=== PATIENT | male | born 1975 ===

== ENCOUNTER 2024-12-25 11:36 | Emergency (ER) | payer BC, SELFPAY ==
[2024-12-25] VITALS (8 sets, daily range): BP systolic 126–145; BP diastolic 89–102; PULSE 78–89; RESP 16–18; TEMP 36.5; O2SAT 97–99; BMI 24.7
--- NOTE | 2024-12-25 17:48 | CRLHL7_ITS ---
For Patients: As a result of the Century Cures Act, medical imaging exams and procedure reports are released immediately into your electronic medical record. You may view this report before your referring provider. If you have questions, please contact your health care provider. Indication: Headaches, weight loss. Technique: CT of the head without contrast. Coronal and sagittal reformats. Bone and soft tissue windows. Comparison: No prior studies available for comparison at this institution. Findings: No acute intracranial hemorrhage or extra-axial collection. No evidence of acute cortical infarction. No mass effect or midline shift. Normal cerebral volume. The ventricles are normal in size, shape and contour. There is normal silva and white matter differentiation. The orbital contents are normal. No calvarial fractures. Incidental bone island in the left frontal bone scalp and other imaged soft tissue structures are normal. Mastoid air cells are clear. Paranasal sinuses are well aerated. Leftward deviation of the nasal septum. Impression: No acute intracranial abnormality. Please note that all CT scans at this facility use dose modulation, iterative reconstruction, and/or weight-based dosing when appropriate to reduce radiation dose to as low as reasonably achievable. Dictated by Chandu Baldwin MD @ 12/25/2024 6:10:10 PM (Electronically Signed)
--- NOTE | 2024-12-25 17:49 | CRLHL7_ITS ---
For Patients: As a result of the Century Cures Act, medical imaging exams and procedure reports are released immediately into your electronic medical record. You may view this report before your referring provider. If you have questions, please contact your health care provider. INDICATION: Chest pain. TECHNIQUE: Chest 2 views. COMPARISON: None. FINDINGS: Cardiovascular and mediastinum: Heart size and vasculature are normal in caliber and appearance. Lungs and pleural spaces: No focal consolidation, pleural effusion, or pneumothorax. Bones and soft tissues: Unremarkable for age. IMPRESSION: No evidence of an acute pulmonary process. Dictated by Juan West MD @ 12/25/2024 6:24:41 PM (Electronically Signed)
--- NOTE | 2024-12-25 17:59 | ED.GENADULT ---
HPI - General Adult General Date Seen: 12/25/24 Chief complaint: Unspecified Complaint, Adult Stated complaint: anxiety, headache, body aches Time Seen by Provider: 12/25/24 17:34 Source: patient Mode of arrival: ambulatory Limitations: no limitations History of Present Illness HPI narrative: Patient is a 49-year-old male presenting for multiple complaints. His main complaint is he is concerned he is not sleeping and he believes that is causing all of his other issues. He has been having a headache now for few weeks and thinks is because he can not sleep. Has also been staying he has been losing weight and has a dry mouth. Not aware of any sick contacts. He states he has tried some [id number] sleep medication but the only thing work was when his doctor previously prescribed him Ambien. Also states his entire body hurts. States he started having chest pain a few days ago. Does not feel short of breath. Feels very fatigued but denies any focal weakness or numbness. States he feels like he has some vision changes when he closes eyes and opens them again. States all the symptoms are making him very anxious but denies any thoughts of self-harm. His is concerned because he is in acting normal. The difficulty in sleep has been going on since the beginning of November. Related Data Home Medications ?Medication ?Instructions ?Recorded ?Confirmed Remelton QHS 12/25/24 gabapentin 300 mg capsule 300 mg PO .PRN 12/25/24 12/25/24 Allergies Allergy/AdvReac Type Severity Reaction Status Date / Time No Known Drug Allergies Allergy Verified 12/25/24 12:10 Review of Systems Status of ROS: Reports: 10 or more systems reviewed and unremarkable except as noted in History and below [facility] Social History Smoking Status: Never smoker Second hand tobacco smoke exposure: No How often do you have a drink containing alcohol: never AUDIT-C Alcohol total score: 0 Non-prescribed substance use: denies use Exam Narrative: Exam Narrative: Const: Well-nourished, Well-developed, in mild distress Eyes: PERRL, no conjunctival injection, and symmetrical lids HENT: Atraumatic external nose and ears. Moist mucous membranes. Neck: Symmetric, trachea midline, No thyromegaly. CVS: RRR, No murmurs or gallops. Peripheral pulses 2+ and equal in all extremities RESP: Unlabored respiratory effort. Clear to auscultation bilaterally. GI: Nontender/Nondistended, No rebound or guarding. MSK:Extremities w/o deformity, Normal Active ROM Skin: Warm, Dry. No rashes or lesions. Neuro: Normal Muscle tone, No focal neurological deficits. Psych: Awake, Alert, & Oriented x3. Appropriate mood and affect. Const: Vital Signs, click to edit/add: Vital Signs - 24 hr 12/25/24 11:58 12/25/24 15:26 12/25/24 18:45 Temperature 97.7 F 97.7 F Pulse Rate [Pulse Oximeter] 79 89 Respiratory Rate 16 18 Respiratory Rate [ Generalized] Blood Pressure [Ri ght Upper Arm] 126/89 137/102 H Pulse Oximetry 97 98 Oxygen Delivery Me thod Room Air Room Air 12/25/24 18:49 12/25/24 18:52 Temperature 97.7 F Pulse Rate [Pulse Oximeter] 78 Respiratory Rate 18 Respiratory Rate [ Generalized] 18 Blood Pressure [Ri ght Upper Arm] 145/102 H Pulse Oximetry 98 Oxygen Delivery Me thod Room Air Course Vital Signs Vital signs: Initial Vital Signs Temperature 97.7 F 12/25/24 11:58 Temperature Source Temporal Artery Scan 12/25/24 11:58 Pulse Rate 79 12/25/24 11:58 Respiratory Rate 16 12/25/24 11:58 Blood Pressure 126/89 12/25/24 11:58 Blood Pressure Mean 101 12/25/24 11:58 Blood Pressure Position Sitting 12/25/24 11:58 Pulse Oximetry 97 12/25/24 11:58 Oxygen Delivery Method Room Air 12/25/24 11:58 Vital Signs Temperature 97.7 F 12/25/24 11:58 Pulse Rate 79 12/25/24 11:58 Respiratory Rate 16 12/25/24 11:58 Blood Pressure 126/89 12/25/24 11:58 Pulse Oximetry 97 12/25/24 11:58 Oxygen Delivery Method Room Air 12/25/24 11:58 Temperature 97.7 F 12/25/24 18:52 Pulse Rate 78 12/25/24 18:52 Respiratory Rate 18 12/25/24 18:52 Blood Pressure 145/102 H 12/25/24 18:52 Pulse Oximetry 98 12/25/24 18:52 Oxygen Delivery Method Room Air 12/25/24 18:52 Medications Administered Medications: Discontinued Medications Generic Name Dose Route Start Last Admin Trade Name Eron PRN Reason Stop Dose Admin Diphenhydramine HCl 25 mg 12/25/24 17:48 12/25/24 18:45 Diphenhydramine 50 Mg/Ml Inj IVP 12/25/24 17:49 25 mg ONCE ONE Administration Lactated Ringer's 1,000 mls @ 1,000 mls/hr 12/25/24 17:48 12/25/24 19:39 Lactated Ringers 1000 Ml IV 12/25/24 18:47 Infused .Q1H ONE Infusion Ketorolac Tromethamine 15 mg 12/25/24 17:48 12/25/24 18:45 Ketorolac 15 Mg/Ml Inj IVP 12/25/24 17:49 15 mg ONCE ONE Administration Metoclopramide HCl 10 mg 12/25/24 17:48 12/25/24 18:45 Metoclopramide Hcl 5 Mg/Ml Inj IVP 12/25/24 17:49 10 mg ONCE ONE Administration Medical Decision Making [facility] Narrative Medical decision making narrative: Patient is a 49-year-old male presenting to the emergency department multiple complaints. His biggest concern is his headache and difficulty sleeping. Heart same be sleeping I will do a thorough workup to make sure electrolyte causes or intracranial causes of his difficulty sleeping. He has been losing weight which could be related to eating much but I will do a CT scan of his head to make sure no intracranial abnormalities. Will give him a migraine cocktail for his headache. This should also help with his other pains. His chest pain just started a few days ago but will do a workup for the chest pain. The differential diagnosis of chest pain is broad and includes common etiologies such as musculoskeletal strain, GERD, pneumonia, etc. More serious etiologies considered include PE, coronary artery disease, pneumothorax, aortic dissection, aortic aneurysm. Wells score is 0. He looks otherwise stable and aortic dissection/aortic aneurysm seems very unlikely. I do chest x-ray look for signs of pneumonia or pneumothorax. EKG and troponin order to look for cardiac abnormalities. Head CT reviewed by myself and the radiologist shows no acute concerning abnormalities. Chest x-ray reviewed by myself and the radiologist shows no acute concerning abnormalities. EKG reviewed by myself shows no acute concerning abnormalities. Lab work returned showing no acute findings. He still having a slight headache but overall I am not finding any abnormalities. Troponin within normal limits. I do believe he is safe for discharge. Patient is agreeable to this plan. He will follow-up with his primary care provider. Lab Data Labs: Lab Results 12/25/24 12/25/24 Range/Units 18:40 18:49 WBC 8.16 (4.50-11.00) K/uL RBC 5.79 (4.30-5.90) m/uL Hgb 16.6 (13.5-17.5) gm/dL Hct 48.8 (37.0-53.0) % MCV 84 (80-100) fL MCH 29 (26-34) pg MCHC 34 (32-36) gm/dL RDW Coeff of Porter 12.7 (11.5-15.5) % Plt Count 398 (140-440) K/uL Neut % (Auto) 63.6 (42.0-72.0) % Lymph % (Auto) 26.3 (20-44) % Nash % (Auto) 8.6 (0.0-11.0) % Eos % (Auto) 0.9 (0.0-7.0) % Baso % (Auto) 0.5 (0.0-3.0) % Neut # (Auto) 5.19 (1.7-7.0) K/uL Lymph # (Auto) 2.15 (0.90-2.90) K/uL Nash # (Auto) 0.70 (0.00-0.90) K/UL Eos # (Auto) 0.07 (0.00-0.50) K/uL Baso # (Auto) 0.04 (0.00-0.30) K/uL Abs Immat Gran (auto) 0.01 (0.00-0.30) K/uL Imm/Tot Granulo (auto) 0.1 % Sodium 135 (135-149) mmol/L Potassium 3.5 L (3.6-5.1) mmol/L Chloride 102 (96-114) mmol/L Carbon Dioxide 25 (20-32) mmol/L Anion Gap 8 (7-15) mEq/L BUN 14 (5-24) mg/dL Creatinine 1.0 (0.5-1.5) mg/dL Estimated Creat Clear 84.46 Estimated GFR 93 ml/min Glucose 138 H (60-115) mg/dL Calcium 9.3 (8.4-10.6) mg/dL Total Bilirubin 0.5 (0.1-1.5) mg/dL AST 31 (12-35) U/L ALT 28 (4-50) U/L Alkaline Phosphatase 76 (40-150) U/L Total Protein 7.7 (6.0-8.3) g/dL Albumin 4.6 (3.3-5.0) g/dL POC Troponin I 0.00 L (0.01-0.04) ng/ml Imaging Data CT scan head: Attestation: I have reviewed the pertinent imaging results. Radiologist's impression: No acute intracranial abnormality. Please note that all CT scans at this facility use dose modulation, iterative reconstruction, and/or weight-based dosing when appropriate to reduce radiation dose to as low as reasonably achievable. Dictated by Chandu Baldwin MD @ 12/25/2024 6:10:10 PM Chest x-ray: Attestation: I have reviewed the pertinent imaging results. Radiologist's impression: No evidence of an acute pulmonary process. Dictated by Juan West MD @ 12/25/2024 6:24:41 PM ECG Data Attestation: I personally reviewed and interpreted this ECG as follows: Prior ECG tracings: not available for review Interpretation: Normal sinus rhythm with rate of 70 beats per minute, normal intervals, left axis deviation, no ST or T-wave abnormalities. Discharge Plan Discharge Clinical Impression: Headache Qualifiers: Headache type: unspecified Headache chronicity pattern: unspecified pattern Intractability: not intractable Qualified Code(s): R51.9 - Headache, unspecified Insomnia Qualifiers: Insomnia type: unspecified Qualified Code(s): G47.00 - Insomnia, unspecified Patient Disposition: Home, Self-Care Condition: Stable Instructions: Acute Headache (DC), Insomnia (ED) Additional Instructions: Return to emergency department for new or worsening symptoms. Recommend close follow-up with your primary care provider. Prescriptions: No Action gabapentin 300 mg capsule 300 mg PO .PRN Remelton 8 mg tablet QHS Follow Up/Referrals: Rachelle Ball DO [Primary Care Provider, Family Practice] Stand Alone Forms: MyHealth Info Instructions
[2024-12-25] MEDS: LACTATED RINGERS 1000 ML 1,000 ML IV (18:45)
[2024-12-25] MEDS: METOCLOPRAMIDE HCL 5 MG/ML INJ 10 MG IVP (18:45)
[2024-12-25 18:49] LABS: Hematocrit* 48.8 % (37.0-53.0); Hemoglobin* 16.6 gm/dL (13.5-17.5); Immature Granulocytes Abs Auto 0.01 K/uL (0.00-0.30); Immature Granulocytes Pct Auto 0.1 %; Lymphocytes Absolute Auto 2.15 K/uL (0.90-2.90); Mean Corpuscular HGB Conc 34 gm/dL (32-36); Mean Corpuscular Hemoglobin 29 pg (26-34); Mean Corpuscular Volume 84 fL (80-100); RDW Coefficient of Variation % 12.7 % (11.5-15.5); Red Blood Count* 5.79 m/uL (4.30-5.90); White Blood Count* 8.16 K/uL (4.50-11.00)
--- OUTSIDE RECORDS SUMMARY | 2024-12-25 18:51 | XMS_ITS | Clinical Summary ---
Author Organization [facility] Address [address] [place] [address] Care Team Providers Care Security Attendant Name Role Phone LizzyRachelle Primary Care Provider [phone] Allergies No known active allergies Medications indomethacin (INDOCIN) 50 mg capsuleIndicati ons:Acute left ankle pain Take 1 Capsule (50 mg) by mouth three times daily with meals. For gout, use short term. Up to three times daily and then decrease down to off as soon as possible. 30 Capsule 4 Active gabapentin (NEURONTIN) 300 mg capsuleIndicati ons:Radiculopat hy, lumbar region,Nerve pain Take 1 Capsule by mouth in the morning and 2 capsules by mouth in the evenings 270 Capsule 3 4 Active Additional Information Patient taking differently: 600 mg Oral BEDTIME PRN, Take 1 Capsule by mouth in the morning and 2 capsules by mouth in the evenings, Reported on 12/03/2024 ramelteon (Rozerem) 8 mg tabletIndicatio ns:Insomnia, unspecified type Take 1 Tablet (8 mg) by mouth at bedtime if needed for Sleep. 30 Tablet 5 Active LORazepam (ATIVAN) 0.5 mg tabIndications: Stress reaction Take 1 Tablet (0.5 mg) by mouth 3 times daily if needed for Anxiety. 30 Tablet 5 025 Discontin ued(*Med complete/ Regimen complete/ Level of care change) zolpidem (AMBIEN) 5 mg tabletIndicatio ns:Insomnia, unspecified type Take 1 Tablet (5 mg) by mouth at bedtime if needed for Sleep. 30 Tablet 025 Discontin ued(*Alecia ent states no longer taking) Active Problems Problem Noted Date Diagnosed Date Vitamin D deficiency 08/20/2023 Acute left ankle pain 04/20/2023 Overview (04/20/2023): April 2023: Was seen for recurrent and episodic left ankle pain. Possible Gout vs other. Uric Acid 8. Mixed dyslipidemia 11/15/2021 Overview (11/15/2021): Atherosclerotic cardiovascular disease 3% Lumbar disc herniation with radiculopathy 2021 Radiculopathy, lumbar region 11/08/2016 Encounters Date Type Department Care Team Description 12/24/2024 Telephone [facility] [address] [place] [address] Rachelle Ball DO Prior Authorization (ramelteon (Rozerem) 8 mg tablet) 12/20/2024 Telephone [facility] [address] [place] [address] Rachelle Ball DO Appointment Request 12/17/2024 Telephone [facility] [address] [place] [address] Rachelle Ball DO Medication Management (ramelteon (Rozerem) 8 mg tablet ) 12/16/2024 E-Consult [facility] [address] [place] [address] [address] [facility] [address] [place] [address] Davis Garcia MD 12/14/2024 Telephone [facility] [address] [place] [address] Rachelle Ball DO Appointment Request (Follow up ) 12/03/2024 10:45 AM CDT Office Visit [facility] [address] [place] [address] Rachelle Ball, Anxiety; Medication Management; Sleep Problem 12/03/2024 Travel 11/26/2024 1:50 PM CDT [facility] [address] [facility] [place] [address] Rachelle Ball, Anxiety (Not sleeping well over a week - was on vacation for a week prior ) 11/26/2024 Travel 11/26/2024 Nurse Triage [facility] [address] [place] [address] Rachelle Ball, Headache from Last 3 Months Immunizations Immunization Administration Dates Next Due Influenza,CCIIV4 PRESERV FREE 01/09/2020 Tdap 11/14/2021 Family History Medical History Relation Name Comments Alzheimer's disease Father Diabetes type II Father Hepatitis Father Kidney disease Father Kidney failure Father Stroke Father Relation Name Status Comments Father Social History Tobacco Use Types Packs/Day Years Used Date Smoking Tobacco: Never Passive Smoke Exposure: Never Smokeless Tobacco: Never Tobacco Cessation:Counseling Given: Not Answered Alcohol Use Standard Drinks/Week Comments Yes 1 (1 standard drink = 0.6 oz pur e alcohol) very seldom has a beer PHQ-2 Answer Date Recorded PHQ-2 TOTAL SCORE 3 12/03/2024 Social Connections Answer Date Recorded Do you often feel lonely or isolated from those around you? 0 12/03/2024 Financial Resource Strain Answer Date R ecorded Difficulty of Paying Living Expenses 3 12/03/2024 Difficulty of Paying Living Expenses Not on file 12/03/2024 Food Insecurity Answer Date Recorded Do you worry your food will run out before you are able to buy more? 1 12/03/2024 Transportation Needs Answer Date Record ed Does lack of transportation keep you from medica l appointments? 1 12/03/2024 Does lack of transportation keep you from work, meetings or getting things that you need? 1 12/03/2024 Housing Stability Answer Date Recorded What is your housing situation today? 1 12/03/2024 Utilities Answer Date Recorded Do you have trouble paying f or utilities (for example, heat, electricity, water, phone)? 1 12/03/2024 Sex and Gender Information Value Date Recorded Sex Assigned at Not on file Legal Sex Male 6:31 AM [employer] Gender Identity Not on file Sexual Orientation Not on file Obstetrics History Last Filed Vital Signs Vital Sign Reading Time Taken Comments Blood Pressure 130/80 11/26/2024 1:40 PM CDT Pulse 80 11/26/2024 1:40 PM CDT Temperature 36.3 C (97.4 F) 03/29/2024 11:16 AM [employer] Respiratory Rate 18 03/29/2024 11:16 AM [employer] Oxygen Saturation 98% 03/29/2024 11:16 AM [employer] Inhaled Oxygen Concentration - - Weight 75.4 kg (166 lb 3.2 oz) 12/03/2024 10:48 AM CDT Height 170.2 cm (5' 7) 11/26/2024 1:40 PM CDT Body Mass Index 26.03 11/26/2024 1:40 PM CDT Plan of Treatment Upcoming Encounters Date Type Department Care Team (Late st Contact Info) Description 03/15/2025 3:00 PM [employer] Telemedicine [facility] [address] [facility] [address] [place] [address] Marycruz Murrieta, REWRITER [address] [facility] [address] [place] [address] Health Maintenance Due Date Last Done Comments Hepatitis B series for 19+ (1 of 3 - 19+ 3-dose series) 07/23/1995 Colonoscopy through age 75 2021 COVID-19 vaccine series ( - 2024- season) 2024 05/08/2021, 07/20/2020 Influenza Vaccine (#1) 2024 01/09/2020 BMI (ht and wt on same day) for age 18+ 11/26/2025 11/26/2024, 08/19/2023, 04/18/2023, Additional history exists Depression screening for age 12+ 12/03/2025 12/03/2024, 11/26/2024, 11/14/2021, Additional history exists Lipids for age 45-75 08/18/2028 08/19/2023, 11/14/2021, 11/01/2020 Tetanus booster 11/15/2031 11/14/2021 RSV vaccine for adults or (1 - 1-dose 75+ series) 07/23/2051 Hepatitis C screening for age 18-79 Completed 11/14/2021 HIV for age 15-65 Completed 08/19/2023 Pneumococcal series for age 6-49 Aged Out No longer eligible based on patient's age to complete this topic Procedures Procedure Name Priority Date/Time Associated Diagnosis Comments ANTI HIV 1/2 Routine 08/19/2023 10:28 AM CDT Routine general medical examination at a health care facility LIPID PANEL W REFLEX MEASURED LDL Routine 08/19/2023 10:28 AM CDT Routine general medical examination at a health care facility ANTI HCV Routine 11/14/2021 10:02 AM CDT Need for hepatitis C screening test from Last 3 Months or Most Recently Relevant to Health Maintenance Results * (ABNORMAL) LIPID PANEL W REFLEX MEASURED LDL (08/19/2023 10:28 AM CDT) CHOLESTEROL,TOTAL 244(H) 100 - 199 mg/dL 08/19/2023 7:33 PM CDT [facility] Comment: Cholesterol, Total Reference Ranges Desirable <200 mg/dL Borderline 200-239 mg/dL High >=240 mg/dL TRIGLYCERIDES 219(H) <150 mg/dL 08/19/2023 7:33 PM CDT [facility] HDL CHOLESTEROL 36(L) >40 mg/dL 7:33 PM CDT [facility] NON-HDL CHOLESTEROL 208(H) <145 mg/dl 08/19/2023 7:33 PM CDT [facility] CHOL/HDL RATIO 6.78(H) <4.50 08/19/2023 7:33 PM CDT [facility] LDL CHOLESTEROL 164(H) <=130 mg/dL 08/19/2023 7:33 PM CDT [facility] VLDL CHOLESTEROL 44(H) <=30 mg/dL 08/19/2023 7:33 PM CDT [facility] PROVIDER ORDERED STATUS RANDOM 08/19/2023 7:33 PM CDT [facility] Blood BLOOD SPECIMEN / Unknown Venipuncture / Unknown 08/19/2023 10:28 AM CDT 08/19/2023 10:28 AM CDT Miguel Burroughs MD CHEMISTRY Final Resul t Performing Organization Address [facility] Co de Phone Number [facility] [address] [place] [address], * ANTI HIV 1/2 (08/19/2023 10:28 AM CDT) HIV-1/HIV-2 SCREEN Non-Reacti ve Non-Reacti ve 08/19/2023 6:54 PM CDT [facility] Comment:HIV-1 p24 and HIV-1/ HIV-2 Ab Not Detected. Blood BLOOD SPECIMEN / Unknown Venipuncture / Unknown 08/19/2023 10:28 AM CDT 08/19/2023 10:28 AM CDT Miguel Burroughs MD SEND OUTS Final Resul t Performing Organization Address [facility] de Phone Number [facility] [address] [place] [address], * ANTI HCV (11/14/2021 10:02 AM CDT) HEPATITIS C ANTIBODY Non-React brandt Non-React brandt 11/14/2021 7:00 PM CDT [facility] Comment:Antibodies to HCV no t detected; does not exclude the possibility of exposure to HCV. Blood BLOOD SPECIMEN / Unknown Venipuncture / Unknown 11/14/2021 10:02 AM CDT 11/14/2021 10:02 AM CDT Rachelle Ball DO SEND OUTS Final Resul t Performing Organization Address City/[facility] Co de Phone Number [facility] [address] [place] [address], from Last 3 Months or Most Recently Relevant to Health Maintenance Insurance [facility] [place] Care Teams Security Attendant Relationship Specialty Start Date End Date Rachelle Ball DO PCP - General Family Practice 08/19/23
--- OUTSIDE RECORDS SUMMARY | 2024-12-25 18:51 | XMS_ITS | Clinical Summary ---
Author Organization [facility] Address [address] [place] [address] Care Team Providers Care Medicinal Chemist Name Role Phone Unavailable Primary Care Provider Unavailabl e Source Comments You are receiving this document as you are listed as the primary care provider,follow-up provider, or the patient has been referred to you for consultation.This is in compliance with the Medicare and[facility] Incentive [facility],which states Providers who transition their patient to another setting of careor provider of care or refers their patient to another provider of care shouldprovide summary care record for each transition of care or referral. [employer] Allergies No known active allergies Medications ibuprofen (MOTRIN) 200 MG tablet Take 1-2 Tablets by mouth every 24 hours as needed for Pain. 100 Tablet 11 03/27/2020 Active gabapentin (NEURONTIN) 300 MG capsule Take 1 Capsule by mouth daily at bedtime. 90 Capsule 3 03/27/2020 Active DULoxetine (CYMBALTA) 20 MG capsule Take 1 Capsule by mouth daily. 90 Capsule 3 03/27/2020 Active Active Problems Problem Noted Date Diagnosed Date Elevated CK 03/29/2019 Lumbar spondylosis 12/30/2018 Myofascial pain 12/30/2018 Multiple joint pain 12/30/2018 Immunizations Immunization Administration Dates Next Due Influenza (Flucelvax), Preserv Free QIV 01/09/20 20 Tao COVID-19 Vaccine 07/20/2020 Social History Tobacco Use Types Packs/Day Years Used Date Smoking Tobacco: Never Smokeless Tobacco: Never Alcohol Use Standard Drinks/Week Comments Yes 0 (1 standard drink = 0.6 oz pur e alcohol) Sex and Gender Information Value Date Recorded Sex Assigned at Not on file Legal Sex Male 10:14 AM CDT Gender Identity Not on file Sexual Orientation Not on file Last Filed Vital Signs Vital Sign Reading Time Taken Comments Blood Pressure 136/96 03/29/2019 8:13 AM FINANCIAL SERVICES SALES REPRESENTATIVE Pulse 76 03/29/2019 8:13 AM FINANCIAL SERVICES SALES REPRESENTATIVE Temperature - - Respiratory Rate - - Oxygen Saturation - - Inhaled Oxygen Concentration - - Weight 79.4 kg (175 lb) 03/29/2019 8:13 AM FINANCIAL SERVICES SALES REPRESENTATIVE Height 170.2 cm (5' 7) 12/30/2018 10:27 AM CDT Body Mass Index 27.41 12/30/2018 10:27 AM CDT Plan of Treatment Health Maintenance Due Date Last Done Comments Colon Cancer Screening Plan Due 1976 Hep C Screening (Preventive Services) 1976 HIV Screening (Preventive Services) 1992 Adult Preventive Visit 1994 DTaP/Tdap/Td Vaccine (1 - Tdap) 07/23/1995 HepB Vaccine (1) 07/23/1995 Cholesterol 07/23/2011 COVID-19 Vaccine (2 - 2024-2 6 season) 2024 07/20/2020 Influenza Vaccine (#1) 2025 01/09/2020 Zoster/Shingles Vaccine (1 of 2) 2026 HepA Vaccine Aged Out No longer eligi ble based on patient's age to complete this topic Hib Vaccine Aged Out No longer eligi ble based on patient's age to complete this topic IPV (Polio) Vaccine Aged Out No longe r eligible based on patient's age to complete this topic MCV4 Vaccine Aged Out No longer eligi ble based on patient's age to complete this topic Meningococcal B Vaccine Aged Out No l onger eligible based on patient's age to complete this topic Pneumococcal Vaccine Aged Out No long er eligible based on patient's age to complete this topic Insurance BCBS OUT OF STATE [place] [id number]
--- OUTSIDE RECORDS SUMMARY | 2024-12-25 18:51 | XMS_ITS | Clinical Summary ---
Author Organization [facility] Address [address] [place] [address]. 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 Gender Identity Not on file Sexual Orientation Not on file Last Filed Vital Signs Vital Sign Reading Time Taken Comments Blood Pressure 137/88 08/16/2018 5:30 PM CDT Pulse 60 08/16/2018 5:30 PM CDT Temperature 36.6 C (97.9 F) 08/16/2018 3:31 PM CDT Respiratory Rate 18 08/16/2018 3:31 PM CDT Oxygen Saturation 95% 08/16/2018 5:30 PM CDT Inhaled Oxygen Concentration - - Weight - - Height - - Body Mass Index - - Plan of Treatment Not on file Insurance BCBS OUT OF STATE Care Teams Electrotype Molder Relationship Specialty Start Date End Date [facility] PCP - General Family Practice 08/16/18
[2024-12-25 18:52] LABS: Slide Review Reflex No
[2024-12-25 18:57] LABS: Troponin, Point-of-Care* 0.00 ng/ml (0.01-0.04)
[2024-12-25 19:03] LABS: Albumin* 4.6 g/dL (3.3-5.0); Chloride* 102 mmol/L (96-114); Sodium* 135 mmol/L (135-149)
[2024-12-25 19:04] LABS: Potassium* 3.5 mmol/L (3.6-5.1)
[2024-12-25 19:06] LABS: Alanine Aminotransferase* 28 U/L (4-50); Alkaline Phosphatase* 76 U/L (40-150); Anion Gap 8 mEq/L (7-15); Aspartate Amino Transferase* 31 U/L (12-35); Bilirubin Total* 0.5 mg/dL (0.1-1.5); Blood Urea Nitrogen* 14 mg/dL (5-24); Carbon Dioxide* 25 mmol/L (20-32); Creatinine* 1.0 mg/dL (0.5-1.5); Est. Creatinine Clearance* 84.46; Estimated Glomerular Filt Rate 93 ml/min; Total Protein* 7.7 g/dL (6.0-8.3)
[2024-12-25 19:07] LABS: Calcium* 9.3 mg/dL (8.4-10.6); Glucose* 138 mg/dL (60-115)
== END 2024-12-25 20:01 | disposition home or self-care (01) ==
PROVIDERS: Emergency Provider Student in an Organized Health Care Education/Training Program; PCP Family Medicine
DX: R51.9 Headache, unspecified (principal); G47.00 Insomnia, unspecified
CPT/HCPCS: 36415; 70450; 71046; 80053; 84484; 85025; 93005; 94761; 96374; 96375; 99284; J1200; J1885; J2765; J7120